=== PATIENT | male | born 1955 | race Caucasian/White ===

== ENCOUNTER 2016-11-01 09:21 | Emergency (ER) | payer MEDICARE, OTHER ==
[~2016-11-01] VITALS: Ht 165.1 cm; Wt 89.4 kg
[~2016-11-01 09:21] MED LIST: ALBU8I INH; AMIT10 PO; CELE200C PO; MSIR15 PO; PANT20 PO; PRED20 PO; PROP80CA PO; SERT100 PO; SPIRCAP INH; ZITH250T PO
[2016-11-01 09:29] VITALS: BP 143/94; PULSE 103; RESP 16; TEMP 98.5; O2SAT 91
[2016-11-01] MEDS ORDERED: CLINDAMYCIN INJ 900 MG in SODIUM CHLORIDE 0.9% INJ 100 ML IV ONE (09:45)
--- NOTE | 2016-11-01 10:01 | PD ---
HPI Chief Complaint: Skin Problem Time Seen by Provider: 09:44 Travel History International Travel<30 days: No Contact w/Intl Traveler<30days: No Traveled to known affect area: No History of Present Illness HPI Patient presents with concerns of wound leakage. Reports the placement of a pain pump in his left abdomen on August 08, [address] Kelsey. He awoke this morning with a significant amount of bloody fluid leaking from his abdomen at the medial aspect of his surgical incision with a small hole. Reports that he noticed some redness yesterday from this area. Denies any nausea vomiting diarrhea or fever. PFSH Past Medical History Asthma: Yes Depression: Yes COPD: Yes Diminished Hearing: No Respiratory: Yes (copd, asthma) Past Surgical History Body Medical Devices: MORPHINE PUMP TO LEFT UPPER QUADRANT ABDOMEN Other Surgery: Yes Social History Alcohol Use: No Tobacco Use: No Substance Use: No Allergies-Medications (Allergen,Severity, Reaction): Coded Allergies: No Known Allergies (Unverified , 11/01/16) Reported Meds & Prescriptions Reported Meds & Active Scripts Active Reported [Oxygen 5L Continuous] Prednisone 20 Mg Tab 40 Mg PO DAILY Take 40 mg (2 tablets) daily for 5 days Amoxicillin-Clavulanate 875-125 mg Tab 875 Mg PO BID not for use in CrCl <30 mL/minute Dilaudid (Hydromorphone HCl) 2 Mg Tab 2 Mg PO Q4H PRN Proventil Hfa 6.7 GM Inh (Albuterol Sulfate) 90 Mcg/Act Aer 2 Puff INH Q6H PRN Valium (Diazepam) 5 Mg Tab 5-10 Mg PO HS PRN Celecoxib 200 Mg Cap 200 Mg PO HS Tamsulosin (Tamsulosin HCl) 0.4 Mg Cap 0.4 Mg PO HS Sertraline (Sertraline HCl) 100 Mg Tab 200 Mg PO HS Pantoprazole (Pantoprazole Sodium) 40 Mg Tab 40 Mg PO HS Levothyroxine (Levothyroxine Sodium) 25 Mcg Tab 25 Mcg PO DAILY Finasteride 5 Mg Tab 5 Mg PO HS Do not crush. Symbicort Inh (Budesonide/Formoterol Fumarate) 80-4.5 Mcg/Act Aero 2 Puff INH Q12HR Amitriptyline (Amitriptyline HCl) 100 Mg Tab 200 Mg PO HS Review of Systems General / Constitutional: No: Fever Eyes: No: Visual changes HENT: No: Headaches Cardiovascular: No: Chest Pain or Discomfort Respiratory: No: Shortness of Breath Gastrointestinal: No: Abdominal Pain Genitourinary: No: Dysuria Musculoskeletal: No: Pain Skin: No Rash Neurologic: No: Weakness Psychiatric: No: Depression Endocrine: No: Polydipsia Hematologic/Lymphatic: No: Easy Bruising Physical Exam Narrative GENERAL: Well-nourished, well-developed patient. SKIN: Warm and dry. HEAD: Normocephalic. EYES: No scleral icterus. No injection or drainage. NECK: Supple, trachea midline. No JVD or lymphadenopathy. CARDIOVASCULAR: Regular rate and rhythm without murmurs, gallops, or rubs. RESPIRATORY: Breath sounds equal bilaterally. No accessory muscle use. GASTROINTESTINAL: Abdomen mildly distended, non-tender, mid left abdomen with a surgical incision measuring approximately 15 cm, at the medial aspect of this there is a 1 cm open dehiscence, wound culture inserted into the cavity which appears to be approximately 3 cm in all directions, there is no significant drainage there is mild erythema about this dehiscence MUSCULOSKELETAL: No cyanosis, mild lower extremity edema. BACK: Nontender without obvious deformity. No CVA tenderness. Data Data Last Documented VS Vital Signs Date Time Temp Pulse Resp B/P Pulse Ox O2 Delivery O2 Flow Rate FiO2 11/01/16 11:19 96 18 179/105 100 Nasal Cannula 5 11/01/16 09:29 98.5 Orders Clindamycin Inj (Cleocin Inj) (11/01/16 09:45) Wound Care (11/01/16 09:45) Wound Culture And Gram Stain (11/01/16 09:45) Ct Abd/Pel W/O Iv Contrast (11/01/16 ) Oral Contrast - Adult (11/01/16 09:56) Complete Blood Count With Diff (11/01/16 10:01) Diatrizoate Liq ( Gastroashwin Guerin) (11/01/16 10:20) Labs Laboratory Tests Test 11/01/16 10:00 White Blood Count 13.8 TH/MM3 Red Blood Count 3.59 MIL/MM3 Hemoglobin 10.2 GM/DL Hematocrit 30.8 % Mean Corpuscular Volume 85.7 FL Mean Corpuscular Hemoglobin 28.5 PG Mean Corpuscular Hemoglobin 33.2 % Concent Red Cell Distribution Width 14.4 % Platelet Count 237 TH/MM3 Mean Platelet Volume 7.7 FL Neutrophils (%) (Auto) 81.6 % Lymphocytes (%) (Auto) 11.2 % Monocytes (%) (Auto) 6.3 % Eosinophils (%) (Auto) 0.1 % Basophils (%) (Auto) 0.8 % Neutrophils # (Auto) 11.3 TH/MM3 Lymphocytes # (Auto) 1.5 TH/MM3 Monocytes # (Auto) 0.9 TH/MM3 Eosinophils # (Auto) 0.0 TH/MM3 Basophils # (Auto) 0.1 TH/MM3 CBC Comment AUTO DIFF Differential Comment AUTO DIFF CONFIRMED MDM Medical Decision Making Medical Screen Exam Complete: Yes Emergency Medical Condition: Yes Differential Diagnosis Abscess, wound dehiscence, serous collection Narrative Course Assessment and plan discussed with patient and at bedside, patient received IV antibiotics. Last 72 hours Impressions Abdomen/Pelvis CT 11/01/16 0000 Signed Impressions: Service Date/Time: Tuesday, November 01, 2016 11:07 - CONCLUSION: 1. Cellulitis of the lower anterior abdominal wall but no abscess seen, status post placement of neural stimulator device. 2. Postsurgical changes lower lumbar spine. Marcos Willis MD Diagnosis Primary Impression: Wound dehiscence, surgical Qualified Code: T81.31XA - Wound dehiscence, surgical, initial encounter Additional Impression: Cellulitis Qualified Code: L03.311 - Cellulitis of abdominal wall Patient Instructions: General Instructions Additional Instructions: Discussed general wound care, follow-up with surgeon, mandatory outpatient referral for wound care. Antibiotic as prescribed. Med/Other Pt SpecificInfo: Prescription(s) given Scripts Clindamycin 150 Mg [id number] Mg PO TID 10 Days Ref 0 Prov:Dg Calvillo MD 11/01/16 Disposition: DISCHARGE HOME Condition: Good Dg Calvillo MD Nov 01, 2016 10:01
[2016-11-01] MEDS ORDERED: FINA5TAB2 PO (10:10)
[2016-11-01] MEDS ORDERED: SERT-129 PO (10:10)
[2016-11-01] MEDS ORDERED: AMIT100T2 PO (10:10)
[2016-11-01] MEDS ORDERED: CELE1CAP8 PO (10:10)
[2016-11-01] MEDS ORDERED: TAMS0.4C4 PO (10:10)
[2016-11-01] MEDS ORDERED: DILA2TAB2 PO (10:10)
[2016-11-01] MEDS ORDERED: ALBU6.7H INH (10:10)
[2016-11-01] MEDS ORDERED: SYMB80AE INH (10:10)
[2016-11-01] MEDS ORDERED: LEVO25TA4 PO (10:10)
[2016-11-01] MEDS ORDERED: DIAZ5 PO (10:10)
[2016-11-01] MEDS ORDERED: PANT40TA3 PO (10:10)
[2016-11-01 10:16] VITALS: BP 165/96; PULSE 97; RESP 18; O2SAT 99
[2016-11-01] MEDS ORDERED: PRED20 PO (10:16)
[2016-11-01] MEDS ORDERED: AMOX875T2 PO (10:16)
[2016-11-01] MEDS ORDERED: [UNRECOGNIZED DRUG - REMARK] (10:19)
[2016-11-01] MEDS ORDERED: DIATRIZOATE MEGLUM/DIATRIZOATE SOD 9 ML CUP ONE (10:20)
[2016-11-01 10:24] LABS: AUTOMATED NEUTROPHIL # 11.3 TH/MM3 (1.8-7.7); BASOPHIL # 0.1 TH/MM3 (0-0.2); BASOPHIL % 0.8 % (0.0-2.0); EOSINOPHIL % 0.1 % (0.0-4.0); HEMATOCRIT 30.8 % (39.0-51.0); LYMPH % 11.2 % (9.0-44.0); LYMPHOCYTE # 1.5 TH/MM3 (1.0-4.8); MEAN CELL VOLUME 85.7 FL (80.0-100.0); MEAN CORPUSCULAR HEMOGLOBIN 28.5 PG (27.0-34.0); MEAN CORPUSCULAR HGB CONC 33.2 % (32.0-36.0); MONO % 6.3 % (0.0-8.0); NEUT % 81.6 % (16.0-70.0); PLATELET COUNT 237 TH/MM3 (150-450); RED BLOOD COUNT 3.59 MIL/MM3 (4.50-5.90); RED CELL DISTRIBUTION WIDTH 14.4 % (11.6-17.2); WHITE BLOOD COUNT 13.8 TH/MM3 (4.0-11.0)
[2016-11-01 10:26] LABS: HEMO FLAGS AUTO DIFF
[2016-11-01 10:45] LABS: SCAN/DIFF AUTO DIFF CONFIRMED
[2016-11-01 11:19] VITALS: BP 179/105; PULSE 96; RESP 18; O2SAT 100
--- NOTE | 2016-11-01 11:28 | RADHPO ---
EXAM DATE/TIME: 11/01/2016 11:07 [facility] COMPARISON: No previous studies available for comparison. INDICATIONS : Evaluate for abscess at surgical site in left lower abdomen. ORAL CONTRAST: Partial prescribed oral contrast ingested. RADIATION DOSE: 20.89 CTDIvol (mGy) MEDICAL HISTORY : Hypothyroidism. Gastroesophageal reflux disease. SURGICAL HISTORY : Colon resection. Fusion, lumbar.pain pump insertion ENCOUNTER: Initial ACUITY: 1 day PAIN SCALE: 0/10 LOCATION: Left lower quadrant TECHNIQUE: Volumetric scanning of the abdomen and pelvis was performed. Using automated exposure control and ad justment of the mA and/or kV according to patient size, radiation dose was kept as low as reasonably achievable to obtain optimal diagnostic quality images. FINDINGS: LOWER LUNGS: The visualized lower lungs are clear. LIVER: Homogeneous density without lesion. There is no dilation of the biliary tree. No calcified gallston es. SPLEEN: Normal size without lesion. PANCREAS: Within normal limits. KIDNEYS: Normal in size and shape. There is no mass, stone, or hydronephrosis. ADRENAL GLANDS: Within normal limits. VASCULAR: There is no aortic aneurysm. BOWEL/MESENTERY: The stomach, small bowel, and colon demonstrate no acute abnormality. There is no free intraperitone al air or fluid. ABDOMINAL WALL: Within normal limits. RETROPERITONEUM: There is no lymphadenopathy. BLADDER: No wall thickening or mass. REPRODUCTIVE: Within normal limits. INGUINAL: There is no lymphadenopathy or hernia. MUSCULOSKELETAL: Induration of soft tissues in the left lower abdomen. Neural stimulator device noted. Postsurgical ch anges lower lumbar sinus. CONCLUSION: 1. Cellulitis of the lower anterior abdominal wall but no abscess seen, status post placement of neur al stimulator device. 2. Postsurgical changes lower lumbar spine. Marcos Willis MD on November 01, 2016 at 11:25 Board Certified Radiologist. This report was verified electronically.
[2016-11-01] MEDS ORDERED: CLIN1CAP5 PO (12:02)
[2016-11-01 12:26] VITALS: BP 164/96
== END 2016-11-01 12:28 | disposition home or self-care (01) ==
LOC: PHED 09:21
DX: T81.31XA Disruption of external operation (surgical) wound, not elsewhere classified, initial encounter (principal); L03.311 Cellulitis of abdominal wall; J45.909 Unspecified asthma, uncomplicated; B95.61 Methicillin susceptible Staphylococcus aureus infection as the cause of diseases classified elsewhere; J44.9 Chronic obstructive pulmonary disease, unspecified; Z98.890 Other specified postprocedural states
CPT/HCPCS: 74176; 85025; 86403; 87070; 87186; 96365; 99284; Q9963; 87205